=== PATIENT | male | born 1945 | race Caucasian/White ===

== ENCOUNTER 2022-01-17 01:56 | Emergency (ER) | payer MEDICARE, OTHER ==
[~2022-01-17] VITALS: Ht 175.3 cm; Wt 77.1 kg
[2022-01-17] MEDS ORDERED: IV NORMAL SALINE 500 ML BAG IV ONE ×2 (02:15→03:45)
[2022-01-17 02:36] LABS: HEMATOCRIT 50.8 % (36.7-47.1); MEAN CORPUSCULAR HEMOGLOBIN 32.1 uug (23.8-33.4); MEAN CORPUSCULAR VOLUME 93.9 fL (73.0-96.2); PLATELET COUNT (AUTO) 187 K/uL (152-348)
[2022-01-17 02:42] LABS: CARBON DIOXIDE 21 mmol/L (21-32); CHLORIDE 103 mmol/L (98-107); CREATININE 1.3 mg/dL (0.6-1.3); GLUCOSE 150 mg/dL (74-106); POTASSIUM 3.3 mmol/L (3.5-5.1); UREA NITROGEN, BLOOD 18 mg/dL (7-18)
[2022-01-17] MEDS ORDERED: ESCI20TA PO (02:44)
[2022-01-17] MEDS ORDERED: ASCO-375 PO (02:44)
[2022-01-17] MEDS ORDERED: DONE10TA44 PO (02:44)
[2022-01-17] MEDS ORDERED: NALT50TA PO (02:44)
[2022-01-17] MEDS ORDERED: HYDR25TA4 PO (02:44)
[2022-01-17] MEDS ORDERED: ASPI81TA31 PO (02:44)
[2022-01-17] MEDS ORDERED: MEMA10TA56 PO (02:44)
[2022-01-17] MEDS ORDERED: POTA10TA21 PO (02:44)
[2022-01-17] MEDS ORDERED: FINA1TAB PO (02:44)
[2022-01-17] MEDS ORDERED: QUET50TA PO (02:44)
[2022-01-17] MEDS ORDERED: MELA5TAB PO (02:44)
[2022-01-17 02:50] LABS: ALANINE AMINOTRANSFERASE 20 U/L (16-63); ALKALINE PHOSPHATASE 41 U/L (50-136); ASPARTATE AMINOTRANSFERASE 22 U/L (15-37); BILIRUBIN,DIRECT 0.2 mg/dL (0.0-0.2); BILIRUBIN,TOTAL 1.2 mg/dL (0.2-1.0); TOTAL PROTEIN, SERUM 6.5 g/dL (6.4-8.2)
[2022-01-17] MEDS ORDERED: POTASSIUM CHLORIDE 20 MEQ POWDER PACKET GT ONE (03:45)
--- NOTE | 2022-01-17 04:10 | NUR ---
Dr. Murrell on panel call with Maricel Fry DNP.
[2022-01-17] MEDS ORDERED: POTASSIUM CHLORIDE 20 MEQ POWDER PACKET ONE (04:14)
--- NOTE | 2022-01-17 04:43 | NUR ---
pts at bedside assisting with his care. pt has expressive aphasia, iv was started to this right wrist.
--- NOTE | 2022-01-17 04:45 | NUR ---
Dr. Murrell at the bedside speaking with the pt and his .
[2022-01-17] MEDS ORDERED: QUETIAPINE FUMARATE 100 MG TABLET ONE (05:15)
[2022-01-17] MEDS ORDERED: QUETIAPINE FUMARATE 25 MG TABLET PO ONE (05:15)
--- NOTE | 2022-01-17 05:26 | NUR ---
pt with confusion expressive aphasia, pt trying to get oob, with assist of myself, Ankit Garcia and the pt's we assisted the pt to the bathroom, the pt is restless and agitated. he removed his pt gown and placed his own long sleeve shirt back on. after he was done urinating he was assisted back to the [facility] where he left his long sleeve shirt on I was able to replace his ekg leads bp cuff and spo2 probe. the pts remains at the bedside. a one to one sitter was ordered for the pt's safety.
--- NOTE | 2022-01-17 07:50 | NUR ---
pointed out that pt had large bruise on back from his fall yesterday. Will inform practitioner when they call or come to ER.
--- NOTE | 2022-01-17 08:21 | NUR ---
called [facility] about CXR report, they will ask radiologist to read it.
--- NOTE | 2022-01-17 10:11 | NUR ---
Pt awoke and started becoming agressive, pulling ECG leads. Pt was reassured and stopped. provider notified and will see pt. in room shortly.
--- NOTE | 2022-01-17 10:50 | NUR ---
Francois Epperson bedside with pt and .
[2022-01-17] MEDS ORDERED: MAGNESIUM HYDROXIDE 30 ML LIQUID UDC PO PRN (11:00)
[2022-01-17] MEDS ORDERED: REMEDY ESSENTIAL ZINC PASTE 113 GM TP PRN (11:00)
[2022-01-17] MEDS ORDERED: ACETAMINOPHEN 325 MG TABLET PO PRN (11:00)
[2022-01-17] MEDS ORDERED: ONDANSETRON 4 MG/2 ML VIAL IV PRN (11:00)
[2022-01-17] MEDS ORDERED: OLANZAPINE 10 MG VIAL IM ONE ×2 (11:12→11:15)
[2022-01-17] MEDS ORDERED: IV NORMAL SALINE 500 ML IV ONE (11:15)
--- NOTE | 2022-01-17 11:50 | NUR ---
The patient is confused and combative. Waiting half an hour for sedation. Unable to perform Carotid Ultrasound.
[2022-01-17 12:42] LABS: MEAN CORPUSCULAR HEMOGLOBIN 32.5 uug (23.8-33.4); MEAN CORPUSCULAR VOLUME 94.9 fL (73.0-96.2); PLATELET COUNT (AUTO) 174 K/uL (152-348)
[2022-01-17 12:52] LABS: BILIRUBIN,TOTAL 1.4 mg/dL (0.2-1.0); POTASSIUM 3.5 mmol/L (3.5-5.1); TOTAL PROTEIN, SERUM 5.9 g/dL (6.4-8.2)
--- NOTE | 2022-01-17 12:57 | NUR ---
Try to do ultrasound Carotid but the patient was too combative. NOTEREADER is trying to contact DIABETIC EDUCATOR Francois Epperson for sedation. When the patient is stable, ER will give a call to US tech.
[2022-01-17 13:00] LABS: THYROID STIMULATING HORMONE 0.399 mIU/mL (0.358-3.740)
[2022-01-17] MEDS ORDERED: TAMS-3 PO (13:16)
--- NOTE | 2022-01-17 14:18 | NUR ---
DCD instructions and documentation done with information provided to me by primary Aruna Garcia. DCd instructions discussed with who remains at bedside. Last vitals of HR 60, 136/69 98%, saturation on RA. RR18. IV access dcd.
[2022-01-18] MEDS ORDERED: PANTOPRAZOLE SODIUM 40 MG TABLET.DR PO SCH (07:00)
== END 2022-01-17 17:52 | disposition home or self-care (01) ==
LOC: ER 02:03 → TRANSITION 13:45 → UNDOADMIN 13:45 → ER 17:52
DX: R55 Syncope and collapse (principal); F01.50 Vascular dementia, unspecified severity, without behavioral disturbance, psychotic disturbance, mood disturbance, and anxiety; G30.9 Alzheimer's disease, unspecified; F02.80 Dementia in other diseases classified elsewhere, unspecified severity, without behavioral disturbance, psychotic disturbance, mood disturbance, and anxiety; R47.01 Aphasia; Z79.82 Long term (current) use of aspirin; Z79.899 Other long term (current) drug therapy; I45.10 Unspecified right bundle-branch block; Z20.822 Contact with and (suspected) exposure to COVID-19
CPT/HCPCS: 99285; 93307; 70450; 96360; 71045; 96361; 87426; 80061; 80053; 84443; 85025 ×2; 85730; 84484 ×3; 36415; 93005; 72125; 96372; 80076; 80048; J7040 ×2; A4663; J2358

== ENCOUNTER 2022-04-10 14:09 | Inpatient (IN) | payer MEDICARE, OTHER ==
[~2022-04-10] VITALS: Ht 182.9 cm; Wt 95.3 kg
[~2022-04-10 14:09] MED LIST: ASCO-375 PO; ASPI81TA31 PO; DONE10TA44 PO; ESCI20TA PO; FINA1TAB PO; HYDR25TA4 PO; MELA5TAB PO; MEMA10TA56 PO; NALT50TA PO; POTA10TA21 PO; QUET50TA PO; TAMS-3 PO
--- NOTE | 2022-04-10 14:37 | NUR ---
PT IS IN ROOM #4A. DR GIBBS EVALUATED THE PT.
[2022-04-10] MEDS ORDERED: LORAZEPAM 2 MG/1 ML VIAL ONE (14:38)
[2022-04-10] MEDS ORDERED: LORAZEPAM 2 MG/1 ML VIAL IV ONE (14:45)
[2022-04-10] MEDS ORDERED: GABAPENTIN (14:52)
[2022-04-10] MEDS ORDERED: NAMENDA (14:52)
[2022-04-10] MEDS ORDERED: ARICEPT (14:52)
[2022-04-10 15:08] LABS: HEMATOCRIT 51.1 % (36.7-47.1); MEAN CORPUSCULAR HEMOGLOBIN 32.6 uug (23.8-33.4); MEAN CORPUSCULAR VOLUME 96.2 fL (73.0-96.2); PLATELET COUNT (AUTO) 181 K/uL (152-348)
[2022-04-10 15:13] LABS: CARBON DIOXIDE 25 mmol/L (21-32); CHLORIDE 105 mmol/L (98-107); CREATININE 1.3 mg/dL (0.6-1.3); GLUCOSE 121 mg/dL (74-106); POTASSIUM 3.8 mmol/L (3.5-5.1); UREA NITROGEN, BLOOD 17 mg/dL (7-18)
[2022-04-10 15:21] LABS: ACETAMINOPHEN < 2.0 ug/mL (10-30); ALANINE AMINOTRANSFERASE 30 U/L (16-63); ALKALINE PHOSPHATASE 58 U/L (50-136); ASPARTATE AMINOTRANSFERASE 27 U/L (15-37); BILIRUBIN,DIRECT 0.1 mg/dL (0.0-0.2); BILIRUBIN,TOTAL 0.5 mg/dL (0.2-1.0); ETHANOL < 3 MG/DL (0-0); TOTAL PROTEIN, SERUM 6.5 g/dL (6.4-8.2)
[2022-04-10] MEDS ORDERED: IV NS 1000 ML 1,000 ML IV ONE (15:45)
[2022-04-10] MEDS ORDERED: SWABABLE VALVE TRANSFER SET EA MC ONE (17:21)
[2022-04-10] MEDS ORDERED: IOHEXOL 350 100 ML INFUS..BTL ONE (17:23)
[2022-04-10] MEDS ORDERED: levETIRAcetam IV 500 MG in IV DEXTROSE 5% 100 ML IV ONE (18:45)
--- NOTE | 2022-04-10 20:21 | NUR ---
Called [facility] to page Dr. Brad Feng.
[2022-04-10] MEDS ORDERED: MORPHINE SULFATE 2 MG/1 ML DISP.SYRIN IV PRN (22:15)
[2022-04-10] MEDS ORDERED: ACETAMINOPHEN 325 MG TABLET PO PRN (22:15)
[2022-04-11] MEDS ORDERED: LORAZEPAM 2 MG/1 ML VIAL ONE ×3 (03:20→20:11)
[2022-04-11] MEDS: LORAZEPAM 2 MG/1 ML VIAL IV PRN ×2 (03:37→20:15)
[2022-04-11 05:52] LABS: HEMATOCRIT 48.4 % (36.7-47.1); MEAN CORPUSCULAR HEMOGLOBIN 32.5 uug (23.8-33.4); MEAN CORPUSCULAR VOLUME 94.7 fL (73.0-96.2); PLATELET COUNT (AUTO) 165 K/uL (152-348)
[2022-04-11 05:58] LABS: CARBON DIOXIDE 29 mmol/L (21-32); CHLORIDE 106 mmol/L (98-107); GLUCOSE 97 mg/dL (74-106); POTASSIUM 3.3 mmol/L (3.5-5.1); UREA NITROGEN, BLOOD 11 mg/dL (7-18)
[2022-04-11 06:29] LABS: ALANINE AMINOTRANSFERASE 24 U/L (16-63); ALKALINE PHOSPHATASE 52 U/L (50-136); ASPARTATE AMINOTRANSFERASE 24 U/L (15-37); BILIRUBIN,TOTAL 1.1 mg/dL (0.2-1.0); CHOLESTEROL 189 mg/dL (<200); HDL CHOLESTEROL 39 mg/dL (40-60); MAGNESIUM 1.9 mg/dL (1.8-2.4); PHOSPHOROUS 2.5 mg/dL (2.5-4.9); TOTAL PROTEIN, SERUM 5.8 g/dL (6.4-8.2); TRIGLYCERIDES 129 MG/DL (30-150)
[2022-04-11] MEDS ORDERED: LORAZEPAM 2 MG/1 ML VIAL IV ONE (06:30)
[2022-04-11] MEDS ORDERED: QUETIAPINE FUMARATE 100 MG TABLET ONE (06:30)
[2022-04-11] MEDS ORDERED: QUETIAPINE FUMARATE 25 MG TABLET PO ONE (06:30)
--- NOTE | 2022-04-11 07:40 | NUR ---
No beds/nurses available for pt's admitted.
--- NOTE | 2022-04-11 07:45 | NUR ---
Pt. sleeping in bed, no distress noted.
[2022-04-11] MEDS ORDERED: PANTOPRAZOLE SODIUM 40 MG VIAL ONE (09:11)
[2022-04-11] MEDS ORDERED: DONEPEZIL 5 MG TABLET ONE (09:11)
[2022-04-11] MEDS ORDERED: ASPIRIN 81 MG TAB.CHEW ONE (09:11)
[2022-04-11] MEDS: PANTOPRAZOLE SODIUM 40 MG VIAL IV SCH (09:51)
[2022-04-11] MEDS: levETIRAcetam IV 500 MG in IV DEXTROSE 5% 100 ML IV SCH (09:51)
--- NOTE | 2022-04-11 09:52 | NUR ---
Pt sleeping, hard to arouse, PO meds held for later.
--- NOTE | 2022-04-11 10:05 | NUR ---
Mono finished infusing.
--- NOTE | 2022-04-11 12:35 | NUR ---
Pt. sleeping in bed, no distress noted.
[2022-04-11] MEDS: ASPIRIN 81 MG TAB.CHEW PO SCH (12:58)
[2022-04-11] MEDS: MEMANTINE HCL 10 MG TABLET PO SCH ×2 (12:59→17:42)
[2022-04-11] MEDS: DONEPEZIL 10 MG TABLET PO SCH (12:59)
[2022-04-11] MEDS ORDERED: GABA300C PO (15:05)
[2022-04-11] MEDS ORDERED: ESCITALOPRAM OXALATE 10 MG TABLET ONE (17:27)
[2022-04-11] MEDS: ESCITALOPRAM OXALATE 10 MG TABLET PO SCH (17:42)
--- NOTE | 2022-04-11 17:43 | NUR ---
Administered PO meds w/applesauce again.
[2022-04-12] MEDS ORDERED: DOCUSATE SODIUM 100 MG CAPSULE PO ONE (00:15)
[2022-04-12] MEDS ORDERED: levETIRAcetam 500 MG/5 ML VIAL IV ONE (00:15)
[2022-04-12] MEDS ORDERED: TAMSULOSIN HCL 0.4 MG CAP.SR.24H ONE (00:15)
[2022-04-12] MEDS: TAMSULOSIN HCL 0.4 MG CAP.SR.24H PO SCH ×2 (00:23→20:41)
[2022-04-12] MEDS: DOCUSATE SODIUM 100 MG CAPSULE PO SCH ×2 (00:23→20:41)
[2022-04-12] MEDS: levETIRAcetam IV 500 MG in IV DEXTROSE 5% 100 ML IV SCH ×3 (00:23→20:41)
[2022-04-12 07:02] LABS: HEMATOCRIT 49.8 % (36.7-47.1); MEAN CORPUSCULAR HEMOGLOBIN 32.8 uug (23.8-33.4); MEAN CORPUSCULAR VOLUME 94.8 fL (73.0-96.2); PLATELET COUNT (AUTO) 165 K/uL (152-348)
[2022-04-12 07:21] LABS: CREATININE 1.2 mg/dL (0.6-1.3); POTASSIUM 3.8 mmol/L (3.5-5.1)
--- NOTE | 2022-04-12 08:44 | NUR ---
attempted to give report multiple times (x4) over the course of 45 minutes, per warehouse receiver it is ok to give report to 3rd floor charge nurse. when i called at 0844, [place] stated that EMMA Locke is too busy to take report and call back in 5 minutes. will attempt to give report in 5 mins.
--- NOTE | 2022-04-12 08:48 | NUR ---
spoke to EMMA Locke taking report for patient. pt being admitted to Tele., rm 308. pt is accompanied by his , she has his belongings (tshirt and pants) and states she will take all belongings home with her when she leaves for the day. 0900 Keppra bag from pharmacy was left with legal administrative secretary since i was unable to locate Cornelia at time of transfer. pt is in stable condition, transfered via padded bed.
[2022-04-12 09:12] VITALS: BP 123/58
--- NOTE | 2022-04-12 09:15 | NUR ---
RECEIVED PATIENT FOR ADMISSION 77 YEARS OLD MALE FROM ED BY [facility] TO ROOM 308 WITH DX OF SEIZURES PLACED INTO BED FIXED AND MADE COMFORTABLE PATIENT IS AWAKE BUT IS CONFUSED AND DISORIENTED IS AT THE BEDSIDE AND ASSISTED WITH THE ADMISSION QUESTIONAIRES ON O2 AT 2L/M BY NASAL CANULA WITH NO SOB AT THIS TIME.PATIENT AND ORIENTED TO ROOM AND FACILITY PROTOCOL.SIDE RAILS PADDED NO SEIZURE ACTIVITY AT THIS TIME.RIGHT FOREARM WITH IV THAT IS VERY POSITIONAL IV PUMP IS BEEPING CONSTANTLY VALVE AND REGULATOR REPAIRER KEH AWARE WITH ORDER FOR MIDLINE AND NOTED WILL CONTINUE TO OBSERVE.
[2022-04-12] MEDS: IV D5 1/2 NS 1000 ML 1,000 ML IV PRN (09:50)
[2022-04-12] MEDS: MEMANTINE HCL 10 MG TABLET PO SCH ×2 (09:51→17:21)
[2022-04-12] MEDS: DONEPEZIL 10 MG TABLET PO SCH (09:51)
[2022-04-12] MEDS: PANTOPRAZOLE SODIUM 40 MG VIAL IV SCH (09:51)
[2022-04-12] MEDS: ASPIRIN 81 MG TAB.CHEW PO SCH (09:51)
--- NOTE | 2022-04-12 10:30 | NUR ---
MITTENS WAS PLACED ON PATIENT RIGHT HAND FIRST TO PREVENT HIM FROM PULLING OUT HIS LINES BUT HE IS NOW USING HIS TEETH TO REMOVE THE MITTEN SO BOTH ARM MITTENS APPLIED WILL CONTINUE TO OBSERVE.
--- NOTE | 2022-04-12 11:30 | NUR ---
CONTINUES TO BE AGITATED AND ATTEMPTING TO GET OUT OF BED DESPITE HIS AT THE BEDSIDE AND DISCOURAGING HIM MIHIR NOTIFIED AND BILATERAL WRIST RESTRAINTS APPLIED AT THIS TIME
[2022-04-12 12:00] VITALS: BP 131/77
[2022-04-12] MEDS ORDERED: LORAZEPAM 2 MG/1 ML VIAL IV ONE (12:30)
--- NOTE | 2022-04-12 12:53 | NUR ---
ORDER TO GIVE PATIENT ATIVAN ONE TIME ORDER NOTED BY MIHIR AND NOTED.
--- NOTE | 2022-04-12 14:02 | NUR ---
MID LINE INSERTED TO HIS LEFT UPPER ARM GAUGE 18 WRAPPED WITH ALEXIS BANDAGE TO PROTECT PATIENT IS CONFUSED AND DISORIENTED AND PULLING ON THE TUBBING AND UNABLE TO REDIRECT AND IS AT THE BEDSIDE.WILL CONTINUE TO OBSERVE.
--- NOTE | 2022-04-12 14:12 | NUR ---
CALLED DR SAUNDERS AND LEFT HIM A MESSAGE THROUGH HER VOICE MAIL TO SEE PATIENT ALSO NOTIFIED THE [facility] WITH FACE SHEET SENT ETC. Addendum: 04/12/22 at 1841 by KAYLEE CHAVEZ RN FACE SHEET FOR PSYCH CONSULT WAS FAXED TO [facility] FOR DR SAUNDERS FOR TOMORROW.
--- NOTE | 2022-04-12 14:42 | NUR ---
PATIENTS MAYTE CONCERNED THAT PATIENT WAS NOT GETTING HIS SERROQUEL MIHIR NOTIFIED AND SHE STATED TO RESTART THE SERROQUEL . HOME MEDS STATED 50 TID BUT HIS MAYTE HAS HIS MED LIST AND ITS 100 MG AM AT 1300 AND BED TIME AND NOTED
[2022-04-12] MEDS ORDERED: LORAZEPAM 2 MG/1 ML VIAL IV PRN (14:45)
[2022-04-12 16:00] VITALS: BP 127/84
[2022-04-12] MEDS: ESCITALOPRAM OXALATE 10 MG TABLET PO SCH (17:21)
--- NOTE | 2022-04-12 17:21 | NUR ---
DR MONSON HERE TO SEE PATIENT WITH NO NEW ORDERS AT THIS TIME.
--- NOTE | 2022-04-12 19:30 | NUR ---
Received patient lying in bed. Getting EEG done at this time. Patient at bedside. In no apparent distress. No signs or symptoms of pain or SOB. In no acute distress. Midline on Left upper arm and IV site on right FA intact and patent. IVF infusing. NSR on tele with HR of 75/min. Safety measure initiated and call light within reached.
[2022-04-12 20:00] VITALS: BP 134/83
[2022-04-12] MEDS: QUETIAPINE FUMARATE 100 MG TABLET PO SCH (20:41)
[2022-04-12] MEDS: REMEDY ESSENTIAL ZINC PASTE 113 GM TOP SCH (20:42)
--- NOTE | 2022-04-12 21:32 | NUR ---
Noted patient with moderate amount of discharge on both eyes especially left eye. Informed Dr. Feng and ordered Gentamicin eye drop, 1 drop QID for 4 days. order noted and will carry out.
[2022-04-12] MEDS ORDERED: GENTAMICIN SULFATE OPHT DROP 5 ML BOTTLE ONE (21:57)
[2022-04-12] MEDS: GENTAMICIN SULFATE OPHT DROP 5 ML BOTTLE EACHEYE SCH (23:15)
[2022-04-13] VITALS: BP_SYST 125; BP_DIAS 57; BP_DIAS 67
[2022-04-13] MEDS ORDERED: GENTAMICIN SULFATE OPHT DROP 5 ML BOTTLE EACHEYE SCH
[2022-04-13] MEDS: IV D5 1/2 NS 1000 ML 1,000 ML IV PRN ×2 (00:47→13:42)
[2022-04-13 04:00] VITALS: BP 116/62
--- NOTE | 2022-04-13 05:36 | NUR ---
Patient slept well during the night. No signs of pain or SOB. Restraint remains in place. Circulation check. Private caregiver on site. No seizure episode noted. Seizure precaution maintained. NSR on tele with HR of 62/min. Kept clean and dry.
[2022-04-13 06:32] LABS: HEMATOCRIT 48.7 % (36.7-47.1); MEAN CORPUSCULAR HEMOGLOBIN 32.6 uug (23.8-33.4); MEAN CORPUSCULAR VOLUME 95.2 fL (73.0-96.2); PLATELET COUNT (AUTO) 170 K/uL (152-348)
[2022-04-13 06:47] LABS: CREATININE 1.1 mg/dL (0.6-1.3); POTASSIUM 3.6 mmol/L (3.5-5.1)
[2022-04-13] MEDS: GENTAMICIN SULFATE OPHT DROP 5 ML BOTTLE EACHEYE SCH ×4 (08:23→23:39)
[2022-04-13] MEDS: PANTOPRAZOLE SODIUM 40 MG VIAL IV SCH (08:24)
[2022-04-13] MEDS: ASPIRIN 81 MG TAB.CHEW PO SCH (08:24)
[2022-04-13] MEDS: MEMANTINE HCL 10 MG TABLET PO SCH ×2 (08:24→17:24)
[2022-04-13] MEDS: REMEDY ESSENTIAL ZINC PASTE 113 GM TOP SCH ×3 (08:24→23:33)
[2022-04-13] MEDS: levETIRAcetam IV 500 MG in IV DEXTROSE 5% 100 ML IV SCH ×2 (08:24→21:46)
[2022-04-13] MEDS: QUETIAPINE FUMARATE 100 MG TABLET PO SCH ×2 (08:24→21:48)
[2022-04-13] MEDS: DONEPEZIL 10 MG TABLET PO SCH (08:24)
[2022-04-13] MEDS ORDERED: VALPROATE SODIUM IV 1,000 MG in IV DEXTROSE 5% 100 ML IV ONE (09:00)
--- NOTE | 2022-04-13 09:15 | NUR ---
PATIENT SEEN BY PHYSICAL THERAPY FOR EVALUATION AND HE WAS ABLE TO AMBULATED APPROXIMATELY 100 FEET PATIENT IS CONFUSED AND DISORIENTED REQUIRES CONSTANT CUES TO STAY ON TASK ASSISTED BACK TO BED CONTINUE TO REQUIRE ETELVINA MITTENS AND ETELVINA WRIST RESTRAINTS PATIENT CONTINUES TO ATTEMPT TO PULL HIS IV LINE AND GETTING OUT OF BED.CIRCULATION CHECKED AND REPOSITIONED Q2H REMAIN ON IVF ORDERED WITH NO S/S OF INFILTERATION ON SITE IS AT THE BEDSIDE AND ASSISTING NEEDED NO SEIZURE ACTIVITIES at this time will continue to observe.
[2022-04-13] MEDS ORDERED: QUETIAPINE FUMARATE 25 MG TABLET PO PRN (10:15)
--- NOTE | 2022-04-13 10:15 | NUR ---
DR SAUNDERS HERE TO SEE PATIENT WITH NEW ORDERS AND NOTED AT THE BEDSIDE
[2022-04-13 11:58] VITALS: BP 100/69
[2022-04-13] MEDS: QUETIAPINE FUMARATE 25 MG TABLET PO SCH (12:21)
[2022-04-13] MEDS: DIVALPROEX 500 MG TABLET.DR PO SCH ×2 (12:21→17:24)
--- NOTE | 2022-04-13 12:36 | NUR ---
ZACK PEREYRA INSTRUCTIONAL TECHNOLOGIST HERE AND SEEN PATIENT WITH NEW ORDERS AND NOTED
[2022-04-13 13:58] LABS: *BILIRUBIN,URIN NEGATIVE (NEGATIVE); *CLARITY,URINE CLEAR (CLEAR); *COLOR,URINE YELLOW (YELLOW); *KETONES,URINE NEGATIVE (NEGATIVE); *UROBILINOGEN,URINE 0.2 E.U./dl (NORMAL); LEUKOCYTE ESTERASE ,URINE NEGATIVE (NEGATIVE); NITRITE, URINE NEGATIVE (NEGATIVE); PH,URINE 6.5 (5.0-8.0); UGLUCOSE NEGATIVE (NEGATIVE)
[2022-04-13 14:36] LABS: *AMPHETAMINE, URINE NEGATIVE (NEGATIVE); *CANNABINOID, URINE NEGATIVE (NEGATIVE); *COCCAINE, URINE NEGATIVE (NEGATIVE); *OPIATE, URINE NEGATIVE (NEGATIVE); *PHENCYCLIDINE SCREEN,URINE NEGATIVE (NEGATIVE)
[2022-04-13 14:42] LABS: *BLOOD, URINE TRACE (NEGATIVE)
[2022-04-13 16:00] VITALS: BP 122/67
[2022-04-13 16:20] LABS: BACTERIA,URINE NONE SEEN /HPF (NONE SEEN); WBC,URINE 0-3 /HPF (0-3)
[2022-04-13 16:21] LABS: SQUAMOUS EPITHELIAL CELL,UR FEW /HPF (NONE SEEN)
[2022-04-13] MEDS: ESCITALOPRAM OXALATE 10 MG TABLET PO SCH (17:24)
[2022-04-13] MEDS ORDERED: SENNOSIDES 1 TABLET PO PRN (17:30)
[2022-04-13] MEDS ORDERED: BISACODYL 10 MG SUPP.RECT RC PRN (17:30)
[2022-04-13] MEDS ORDERED: MAGNESIUM HYDROXIDE 30 ML LIQUID UDC PO PRN (17:30)
[2022-04-13] MEDS: DOCUSATE SODIUM 100 MG CAPSULE PO SCH (18:11)
[2022-04-13 20:00] VITALS: BP 122/65
[2022-04-13] MEDS: TAMSULOSIN HCL 0.4 MG CAP.SR.24H PO SCH (21:46)
[2022-04-14] VITALS: BP 122/65
[2022-04-14] MEDS ORDERED: MAGNESIUM HYDROXIDE 30 ML LIQUID UDC PO ONE (00:45)
[2022-04-14] MEDS: IV D5 1/2 NS 1000 ML 1,000 ML IV PRN ×2 (01:33→13:08)
[2022-04-14 04:00] VITALS: BP 134/65
[2022-04-14 06:43] LABS: HEMATOCRIT 46.2 % (36.7-47.1); MEAN CORPUSCULAR HEMOGLOBIN 32.9 uug (23.8-33.4); MEAN CORPUSCULAR VOLUME 95.1 fL (73.0-96.2); PLATELET COUNT (AUTO) 171 K/uL (152-348)
[2022-04-14 07:08] LABS: CREATININE 1.2 mg/dL (0.6-1.3); MAGNESIUM 1.8 mg/dL (1.8-2.4); PHOSPHOROUS 3.2 mg/dL (2.5-4.9); POTASSIUM 3.9 mmol/L (3.5-5.1)
--- NOTE | 2022-04-14 07:18 | NUR ---
IN BED WITH EYES CLOSED EASILY AROUSABLE BUT HE IS CONFUSED AND DISORIENTED VERBALLY RESPONDS BUT INAPPROPRIATE ALL NEEDS ANTICIPATED AND SATISFIED WITH MAX ASSIST FOR ALL ADL.REPOSITIONED FOR COMFORT Q2H MITTENS AND ETELVINA WRIST RESTRAINTS REMAIN IN USE AT THIS TIME TO PREVENT PATIENT FROM PULLING OUT TUBES CIRCULATION CHECKED AND RELEASED Q2H REMAIN ON IVF ORDERED WITH NO S/S OF INFILTERATION ON SITE MID LINE LEFT UPPER ARM REMAIN INTACT AT THIS TIME WILL CONTINUE TO OBSERVE.
[2022-04-14] MEDS ORDERED: QUETIAPINE FUMARATE 100 MG TABLET PO SCH (08:00)
[2022-04-14] MEDS: MEMANTINE HCL 10 MG TABLET PO SCH ×2 (08:30→16:19)
[2022-04-14] MEDS: QUETIAPINE FUMARATE 25 MG TABLET PO SCH ×2 (08:30→13:04)
[2022-04-14] MEDS: ASPIRIN 81 MG TAB.CHEW PO SCH (08:30)
[2022-04-14] MEDS: PANTOPRAZOLE SODIUM 40 MG VIAL IV SCH (08:30)
[2022-04-14] MEDS: DONEPEZIL 10 MG TABLET PO SCH (08:30)
[2022-04-14] MEDS: DIVALPROEX 500 MG TABLET.DR PO SCH ×3 (08:30→16:19)
[2022-04-14] MEDS: DOCUSATE SODIUM 100 MG CAPSULE PO SCH ×2 (08:30→20:29)
[2022-04-14] MEDS: GENTAMICIN SULFATE OPHT DROP 5 ML BOTTLE EACHEYE SCH ×4 (08:51→20:45)
[2022-04-14] MEDS: REMEDY ESSENTIAL ZINC PASTE 113 GM TOP SCH ×2 (08:52→20:45)
--- NOTE | 2022-04-14 09:47 | NUR ---
PATIENTS AT THE BEDSIDE AND STATED THAT DR NUNN HAD TOLD HER PRIVATE PHYSICIAN THAT AFTER THE DEPAKOTE WAS STARTED THAT HE WILL DISCONTINUE THE KEPPRA BUT THERE IS NO ORDER TO THAT EFFECT SO I CALLED DR MONSON AND HE STATED OKAY TO DISCONTINUE THE KEPPRA NOW AND NOTED.
[2022-04-14] MEDS ORDERED: DIVA-78 PO (10:44)
[2022-04-14] MEDS ORDERED: SENN-175 PO (10:44)
[2022-04-14] MEDS ORDERED: QUET100T32 PO (10:44)
[2022-04-14] MEDS ORDERED: DOCU-141 PO (10:44)
[2022-04-14] MEDS ORDERED: QUET25TA36 PO ×3 (10:44)
[2022-04-14] MEDS ORDERED: LEVE500T9 PO (10:44)
[2022-04-14 11:30] VITALS: BP 103/63
--- NOTE | 2022-04-14 11:54 | NUR ---
PATIENT HAS A DISCHARGE ORDER AND PER THE WALLPAPER HANGER HELPER PATIENTS STATED THAT SHE IS FILLING AN APPEAL TO STOP THE DISCHARGE.
--- NOTE | 2022-04-14 13:08 | NUR ---
[employer] INSURANCE ADJUSTER HERE AND SEEN PATIENT HIS IS IN THE ROOM DISCUSSION ABOUT DISCHARGE AND EXPLAINING THAT SHE IS LOOKING FOR A PLACE TO TAKE HIM NO NEW ORDERS AT THIS TIME.
[2022-04-14 15:42] VITALS: BP 99/69
--- NOTE | 2022-04-14 17:00 | NUR ---
DR NUNN WAS HERE TO SEE PATIENT WITH NO NEW ORDERS AT THIS TIME.
[2022-04-14] MEDS: ESCITALOPRAM OXALATE 10 MG TABLET PO SCH (17:04)
--- NOTE | 2022-04-14 18:07 | NUR ---
RESTING IN BED BEING FED BY HIS CONFUSED AND DISORIENTED FEW ATTEMPTS MADE TO GET OUT OF BED DID INFACT PULL OUT HIS PERIPHERAL LINE ON HIS RIGHT FOREARM EVEN THOUGH IT WAS WRAPPED NO SEIZURE ACTIVITIES AT THIS TIME WILL CONTINUE TO OBSERVE
[2022-04-14 20:00] VITALS: BP 113/63
[2022-04-14] MEDS: QUETIAPINE FUMARATE 100 MG TABLET PO SCH (20:29)
[2022-04-14] MEDS: TAMSULOSIN HCL 0.4 MG CAP.SR.24H PO SCH (20:29)
[2022-04-15] VITALS: BP 112/66
[2022-04-15] MEDS: IV D5 1/2 NS 1000 ML 1,000 ML IV PRN ×2 (00:52→12:32)
[2022-04-15 04:00] VITALS: BP 106/48
[2022-04-15] MEDS: PANTOPRAZOLE ORAL SUSPENSION 40 MG SUSPDR.PKT PO SCH (06:09)
--- NOTE | 2022-04-15 07:31 | NUR ---
RECEIVED PATIENT IN BED WITH EYES CLOSED BUT EASILY AROUSABLE ON ROUNDS.ON ROOM AIR WITH NO SOB AT THIS TIME REMAIN ON IVF ORDERED WITH NO S/S OF INFILTERATION ON SITE MID LINE LEFT UPPER ARM IS INTACT.ETELVINA WRIST RESTRAINTS AND MITTENS REMAIN INTACT CHECKED FOR ADEQUATE CIRCULATION Q2H NO S/S OF PAIN OR DISCOMFORTS NO SEIZURE ACTIVITIES AT THIS TIME WILL CONTINUE TO OBSERVE.
[2022-04-15] MEDS: DIVALPROEX 500 MG TABLET.DR PO SCH ×3 (09:07→17:07)
[2022-04-15] MEDS: DONEPEZIL 10 MG TABLET PO SCH (09:07)
[2022-04-15] MEDS: MEMANTINE HCL 10 MG TABLET PO SCH ×2 (09:07→17:07)
[2022-04-15] MEDS: DOCUSATE SODIUM 100 MG CAPSULE PO SCH ×2 (09:07→20:44)
[2022-04-15] MEDS: ASPIRIN 81 MG TAB.CHEW PO SCH (09:07)
[2022-04-15] MEDS: QUETIAPINE FUMARATE 25 MG TABLET PO SCH ×2 (09:07→13:14)
[2022-04-15] MEDS: REMEDY ESSENTIAL ZINC PASTE 113 GM TOP SCH ×2 (09:57→20:44)
[2022-04-15] MEDS: GENTAMICIN SULFATE OPHT DROP 5 ML BOTTLE EACHEYE SCH ×4 (09:57→20:45)
--- NOTE | 2022-04-15 10:07 | NUR ---
DR SAUNDERS HERE TO SEE AND EXAMINE PATIENT WITH NEW ORDERS AND NOTED
[2022-04-15 12:16] VITALS: BP 112/70
[2022-04-15 16:35] VITALS: BP 119/78
[2022-04-15] MEDS: ESCITALOPRAM OXALATE 10 MG TABLET PO SCH (17:07)
--- NOTE | 2022-04-15 18:00 | NUR ---
RESTING IN BED REMAIN ON IVF ORDERED MID LINE INTACT CONTINUE TO REQUIRE MITTENS AND ETELVINA WRIST PATIENT CONTINUE TO BE UNPREDICTABLE ATTEMPTING TO GET OUT OF BED UNATTENDED UNAWARE OF DESTINATION AT RISK FOR FALL RELATED TO POOR SAFETY AWARENESS CIRCULATION CHECKED AND RELEASED Q2H AT THE BEDSIDE WILL CONTINUE TO OBSERVE.
[2022-04-15 20:00] VITALS: BP 112/64
[2022-04-15] MEDS: QUETIAPINE FUMARATE 100 MG TABLET PO SCH (20:44)
[2022-04-15] MEDS: TAMSULOSIN HCL 0.4 MG CAP.SR.24H PO SCH (20:44)
[2022-04-16] MEDS: IV D5 1/2 NS 1000 ML 1,000 ML IV PRN (00:49)
[2022-04-16 04:00] VITALS: BP 127/55
[2022-04-16] MEDS: PANTOPRAZOLE ORAL SUSPENSION 40 MG SUSPDR.PKT PO SCH (06:26)
[2022-04-16] MEDS: DOCUSATE SODIUM 100 MG CAPSULE PO SCH (09:23)
[2022-04-16] MEDS: MEMANTINE HCL 10 MG TABLET PO SCH ×2 (09:23→16:47)
[2022-04-16] MEDS: DIVALPROEX 500 MG TABLET.DR PO SCH ×3 (09:23→16:47)
[2022-04-16] MEDS: DONEPEZIL 10 MG TABLET PO SCH (09:23)
[2022-04-16] MEDS: ASPIRIN 81 MG TAB.CHEW PO SCH (09:23)
[2022-04-16] MEDS: QUETIAPINE FUMARATE 25 MG TABLET PO SCH ×2 (09:24→12:16)
[2022-04-16] MEDS: GENTAMICIN SULFATE OPHT DROP 5 ML BOTTLE EACHEYE SCH ×3 (09:24→16:46)
[2022-04-16] MEDS: REMEDY ESSENTIAL ZINC PASTE 113 GM TOP SCH (09:25)
[2022-04-16 11:58] VITALS: BP 107/69
[2022-04-16 16:00] VITALS: BP 108/63
--- NOTE | 2022-04-16 16:40 | NUR ---
report given to gayathri ivey @ [employer]
[2022-04-16] MEDS: ESCITALOPRAM OXALATE 10 MG TABLET PO SCH (16:48)
[2022-04-16] MEDS ORDERED: QUETIAPINE FUMARATE 25 MG TABLET PO SCH (18:00)
== END 2022-04-16 19:10 | DRG 101 ==
LOC: ER 14:09 → TRANSITION 20:21 → UNDOADMIN 04-11 09:43 → TRANSITION 04-11 09:43 → TELE3 04-12 08:49 → MEDSURG3 04-16 07:52
PROVIDERS: ADMIT Nurse Practitioner Acute Care; ATTEND Registered Nurse
DX: G40.909 Epilepsy, unspecified, not intractable, without status epilepticus (principal); E87.20 Acidosis, unspecified; R47.01 Aphasia; E87.6 Hypokalemia; Z79.82 Long term (current) use of aspirin; Z79.899 Other long term (current) drug therapy; G30.9 Alzheimer's disease, unspecified; F02.80 Dementia in other diseases classified elsewhere, unspecified severity, without behavioral disturbance, psychotic disturbance, mood disturbance, and anxiety; F29 Unspecified psychosis not due to a substance or known physiological condition; Z73.6 Limitation of activities due to disability; W19.XXXA Unspecified fall, initial encounter; Z66 Do not resuscitate; G31.09 Other frontotemporal neurocognitive disorder
CPT/HCPCS: 36415; 70450; 71045; 71275; 72125; 83605; 83735; 84100; 84443; 84484; 85025; 85730; 86850; 86900; 86901; 87040; 93005; 95819; A4663; C9113; G0378; G0480; J1953; J2060; J3490; Q9967